=== PATIENT | male | born 1955 | race Caucasian/White ===

== ENCOUNTER 2016-03-23 15:44 | Emergency (ER) | payer OTHER ==
[2016-03-23 15:54] VITALS: BMI 29.5
[2016-03-23] MEDS ORDERED: HYDROmorphone HCL CARPU-JECT 1 MG/1 ML DISP.SYRIN IVPB ONE (17:28)
[2016-03-23] MEDS ORDERED: SODIUM CHLORIDE 1,000 ML IV STA (17:28)
[2016-03-23] MEDS ORDERED: HYDROmorphone HCL CARPU-JECT 1 MG/1 ML DISP.SYRIN ONE (17:36)
[2016-03-23 18:05] LABS: BASOPHIL 1.3 % (0-2.0); EOSINOPHIL 0.7 % (0-4.5); MCH 27.6 pg (25.7-33.7); MCHC 32.6 g/dl (32.0-35.9); MEAN CELL VOLUME 84.7 fl (80-96); MEAN PLT VOLUME 9.7 fl (7.5-11.1); PLATELET COUNT 228 K/MM3 (134-434); RDW 14.5 % (11.9-15.9); WHITE BLOOD COUNT 12.6 K/mm3 (4.0-10.0)
[2016-03-23 18:32] LABS: ALBUMIN 4.3 g/dl (3.4-5.0); BILIRUBIN,TOTAL 0.4 mg/dL (0.2-1.0); CALCIUM 8.9 mg/dL (8.5-10.1); CREATININE 1.4 mg/dL (0.7-1.3)
[2016-03-23 18:34] LABS: TOT PROT 7.3 g/dl (6.4-8.2)
--- NOTE | 2016-03-23 18:55 | PDOC ---
History of Present Illness - General History Source: Patient Exam Limitations: No Limitations - History of Present Illness Initial Comments: 03/23/16 18:55 The patient is a 60 year old male, with a significant past medical history of asthma, HTN, and borderline diabetes, who presents to the emergency department with right flank pain. He ranks his pain a 10/10 in pain intensity. He describes the pain as a sharp constant sensation. He also notes his urine often alternates from a brownish and yellow color. He notes having pain whenever he moves or exerts any energy. He notes having nausea and vomiting as well along with frequent dysuria. He denies fever, chills, headache and dizziness. He denies diarrhea and constipation. Allergies: Penicillins Past surgical history: TKR Social History: Nonsmoker. PCP: <Alex Altamirano - Last Filed: 03/23/16 18:55> <Mila Jimenez - Last Filed: 03/23/16 20:47> - General History Source: Patient Exam Limitations: No Limitations <Ailyn Jon - Last Filed: 03/24/16 17:54> - General Chief Complaint: Pain Stated Complaint: flank pain Time Seen by Provider: 03/23/16 17:28 Past History <Alex Altamirano - Last Filed: 03/23/16 18:55> <Mila Jimenez - Last Filed: 03/23/16 20:47> - Past Medical History Anemia: No Asthma: Yes Cancer: No Cardiac Disorders: Yes (SYSTOLIC VALVE LEAKAGE) CVA: No COPD: No CHF: No Dementia: No Diabetes: No GI Disorders: No Disorders: No HTN: Yes Hypercholesterolemia: Yes Liver Disease: No Seizures: No Thyroid Disease: No - Psycho/Social/Smoking Cessation Hx Anxiety: No Suicidal Ideation: No Smoking History: Never smoked Have you smoked in the past 12 months: No If you are a former smoker, when did you quit?: 1979 Information on smoking cessation initiated: No Hx Alcohol Use: No Drug/Substance Use Hx: No Substance Use Type: Alcohol Hx Substance Use Treatment: Yes (1997) <Ailyn Jon - Last Filed: 03/24/16 17:54> - Past Medical History Allergies/Adverse Reactions: Allergies Allergy/AdvReac Type Severity Reaction Status Date / Time Penicillins Allergy Rash Verified 03/23/16 15:49 Home Medications: Ambulatory Orders Ibuprofen [Motrin -] 600 mg PO TID #30 tablet 03/23/16 Tamsulosin HCl [Flomax] 0.4 mg PO DAILY #14 capsule 03/23/16 Review of Systems - Review of Systems Able to Perform ROS?: Yes Comments:: 03/23/16 18:55 GENERAL/CONSTITUTIONAL: No: fever, chills, weakness, loss of appetite. HEAD, EYES, EARS, NOSE AND THROAT: No: change in vision, ear pain, discharge, sore throat, throat swelling. CARDIOVASCULAR: No: chest pain, lightheadedness, palpitations, syncope RESPIRATORY: No: cough, shortness of breath, wheezing, hemoptysis, stridor. GASTROINTESTINAL: Yes : nausea, vomiting No: diarrhea, abdominal cramping, rectal bleeding, constipation. GENITOURINARY: Yes flank pain and dysuria. No: hematuria, frequency, urgency, MUSCULOSKELETAL: No: back pain, neck pain, joint pain, muscle swelling or pain SKIN : No: lesions, pallor, rash or easy bruising. NEUROLOGIC: No: headache, vertigo, paresthesias, weakness ENDOCRINE: No: unexplained weight gain or loss HEMATOLOGIC/LYMPHATIC: No: anemia, easy bleeding, swelling nodes. <Alex Altamirano - Last Filed: 03/23/16 18:55> *Physical Exam - Vital Signs Last Vital Signs Temp Pulse Resp BP Pulse Ox 98.2 F 80 18 156/78 100 03/23/16 15:49 03/23/16 15:49 03/23/16 15:49 03/23/16 15:49 03/23/16 15:49 - Physical Exam Comments: 03/23/16 18:56 GENERAL: The patient is in no acute distress. HEAD: Normal with no signs of trauma. EYES: PERRLA, EOMI, sclera anicteric, conjunctiva clear. ENT: Ears normal, nares patent, oropharynx clear without exudates. Moist mucous membranes. NECK: Normal range of motion, supple without lymphadenopathy, JVD, or masses. LUNGS: Breath sounds equal, clear to auscultation bilaterally. No wheezes, and no crackles. HEART: Regular rate and rhythm, normal S1 and S2 without murmur, rub or gallop. ABDOMEN: Mild RLQ tenderness. Soft, normoactive bowel sounds. No guarding, no rebound. No masses palpable. EXTREMITIES: Normal range of motion, no edema. No clubbing or cyanosis. No erythema, or tenderness. NEUROLOGICAL: Cranial nerves II through XII grossly intact. Normal speech. No focal neurological deficits. MUSCULOSKELETAL: Back non-tender to palpation, mild right CVA tenderness SKIN: Warm, Dry, normal turgor, no rashes or lesions noted. <Alex Altamirano - Last Filed: 03/23/16 18:55> - Vital Signs Last Vital Signs Temp Pulse Resp BP Pulse Ox 98.2 F 80 18 156/78 100 03/23/16 15:49 03/23/16 15:49 03/23/16 15:49 03/23/16 15:49 03/23/16 15:49 <Mila Jimenez - Last Filed: 03/23/16 20:47> - Vital Signs Last Vital Signs Temp Pulse Resp BP Pulse Ox 98.2 F 80 18 156/78 100 03/23/16 15:49 03/23/16 15:49 03/23/16 15:49 03/23/16 15:49 03/23/16 15:49 <Ailyn Jon - Last Filed: 03/24/16 17:54> ED Treatment Course - LABORATORY CBC & Chemistry Diagram: 03/23/16 17:45 03/23/16 17:45 - ADDITIONAL ORDERS Additional order review: Laboratory Results 03/23/16 17:45 Sodium 143 Potassium 3.9 Chloride 103 Carbon Dioxide 30 Anion Gap 10 BUN 18 D Creatinine 1.4 H D Creat Clearance w eGFR 51.69 Random Glucose 119 H D Calcium 8.9 Total Bilirubin 0.4 AST 17 ALT 17 D Alkaline Phosphatase 97 Total Protein 7.3 Albumin 4.3 03/23/16 17:45 RBC 5.48 MCV 84.7 MCHC 32.6 RDW 14.5 MPV 9.7 Neutrophils % 90.0 H Lymphocytes % 5.2 L D Monocytes % 2.8 L Eosinophils % 0.7 Basophils % 1.3 - Medications Given in the ED: ED Medications Discontinued Medications Generic Name Dose Route Start Last Admin Trade Name Freq PRN Reason Stop Dose Admin Hydromorphone HCl 0.5 mg 03/23/16 17:28 03/23/16 17:59 Dilaudid Injection - IVPB 03/23/16 17:29 0.5 mg NOW ONE Administration <Alex Altamirano - Last Filed: 03/23/16 18:55> - LABORATORY CBC & Chemistry Diagram: 03/23/16 17:45 03/23/16 17:45 - ADDITIONAL ORDERS Additional order review: Laboratory Results 03/23/16 03/23/16 17:45 17:33 Sodium 143 Potassium 3.9 Chloride 103 Carbon Dioxide 30 Anion Gap 10 BUN 18 D Creatinine 1.4 H D Creat Clearance w eGFR 51.69 Random Glucose 119 H D Calcium 8.9 Total Bilirubin 0.4 AST 17 ALT 17 D Alkaline Phosphatase 97 Total Protein 7.3 Albumin 4.3 Urine Color Red Urine Appearance Cloudy Urine pH 5.0 Ur Specific [place] 1.021 Urine Protein 2+ H D Urine Glucose (UA) Negative Urine Ketones Negative Urine Blood 3+ H Urine Nitrite Positive Urine Bilirubin Negative Urine Urobilinogen 4.0 e.u/dl Ur Leukocyte Esterase Negative Urine RBC 7744 Urine WBC 179 Urine Mucus Moderate 03/23/16 17:45 RBC 5.48 MCV 84.7 MCHC 32.6 RDW 14.5 MPV 9.7 Neutrophils % 90.0 H Lymphocytes % 5.2 L D Monocytes % 2.8 L Eosinophils % 0.7 Basophils % 1.3 - Medications Given in the ED: ED Medications Discontinued Medications Generic Name Dose Route Start Last Admin Trade Name Curtq PRN Reason Stop Dose Admin Hydromorphone HCl 0.5 mg 03/23/16 17:28 03/23/16 17:59 Dilaudid Injection - IVPB 03/23/16 17:29 0.5 mg NOW ONE Administration Ketorolac Tromethamine 30 mg 03/23/16 19:23 03/23/16 19:40 Toradol Injection - IVPUSH 03/23/16 19:24 30 mg ONCE ONE Administration Sodium Chloride 500 ml 03/23/16 19:26 03/23/16 19:40 Normal Saline - IV 03/23/16 19:27 500 ml ONCE ONE Administration Tamsulosin HCl 0.4 mg 03/23/16 19:23 03/23/16 19:40 Flomax - PO 03/23/16 19:24 0.4 mg ONCE ONE Administration <Mila Jimenez - Last Filed: 03/23/16 20:47> - LABORATORY CBC & Chemistry Diagram: 03/23/16 17:45 03/23/16 17:45 - ADDITIONAL ORDERS Additional order review: Laboratory Results 03/23/16 17:45 Sodium 143 Potassium 3.9 Chloride 103 Carbon Dioxide 30 Anion Gap 10 BUN 18 D Creatinine 1.4 H D Creat Clearance w eGFR 51.69 Random Glucose 119 H D Calcium 8.9 Total Bilirubin 0.4 AST 17 ALT 17 D Alkaline Phosphatase 97 Total Protein 7.3 Albumin 4.3 03/23/16 17:45 RBC 5.48 MCV 84.7 MCHC 32.6 RDW 14.5 MPV 9.7 Neutrophils % 90.0 H Lymphocytes % 5.2 L D Monocytes % 2.8 L Eosinophils % 0.7 Basophils % 1.3 - RADIOLOGY Radiology Studies Ordered: Category Date Time Status SPIRAL- RENAL-STONE CT [CT] Stat CT Scan 03/23/16 17:28 Taken - Medications Given in the ED: ED Medications Discontinued Medications Generic Name Dose Route Start Last Admin Trade Name Freq PRN Reason Stop Dose Admin Hydromorphone HCl 0.5 mg 03/23/16 17:28 03/23/16 17:59 Dilaudid Injection - IVPB 03/23/16 17:29 0.5 mg NOW ONE Administration <Ailyn Jon - Last Filed: 03/24/16 17:54> Medical Decision Making - Medical Decision Making 03/23/16 20:47 I received patient on signout. He has right side pain. Improved with toradol and flomax that I gave him. CT reveals a 2.5mm stone at the right mid-ureter. Mild hydronephrosis. Cr is 1.4 up from 1.0 in the past. Pt was hydrated with 1.5L saline and he will be sent home with instructions to return for worsening abd/flank pain or fever or dysuria. Pt will be teated at home with NSAIDS and flomax. Pt will go home with his . <Mila Jimenez - Last Filed: 03/23/16 20:47> - Medical Decision Making 03/23/16 18:55 A portion of this note was documented by scribe services under my direction. I have reviewed the details of the note, within reason, and agree with the documentation with the following case summary and management plan written by me. Nursing documentation reviewed and incorporated into medical decision making 60 yo M presenting to the ER s/p complaint of right flank and right sided abdominal pain No fevers or chills Dark urine symptoms began at 11am No prior episodes like this No trauma Symptoms consistent with kidney stone Unknown renal function Will give dilaudid for pain, IV fluids Will check labs and UA Pt pending CT and labs signed out to Dr Jimenez <Ailyn Jon - Last Filed: 03/24/16 17:54> *DC/Admit/Observation/Transfer - Attestations Scribe Attestion: 03/23/16 18:56 Documentation prepared by Alex Altamirano, acting as medical donation professional for Ailyn Jon MD. <Alex Altamirano - Last Filed: 03/23/16 18:55> - Discharge Dispostion Admit: No <Mila Jimenez - Last Filed: 03/23/16 20:47> <Ailyn Jon - Last Filed: 03/24/16 17:54> Diagnosis at time of Disposition: Ureteral stone, Hydronephrosis - Discharge Dispostion Disposition: HOME Condition at time of disposition: Stable - Prescriptions Prescriptions: Tamsulosin HCl [Flomax] 0.4 mg PO DAILY #14 capsule Ibuprofen [Motrin -] 600 mg PO TID #30 tablet - Referrals Referrals: Simone Kauffman MD [Primary Care Provider] - Emilio Arredondo MD [Staff Physician] - - Patient Instructions Printed Discharge Instructions: Kidney Stones -- Adult, DI for Extracorporeal Shock Wave Lithotripsy
[2016-03-23 19:03] LABS: URINE APPEARANCE CLOUDY; URINE BILIRUBIN NEGATIVE (NEGATIVE); URINE COLOR RED; URINE GLUCOSE (UA) NEGATIVE (NEGATIVE); URINE KETONE NEGATIVE (NEGATIVE); URINE LEUK ESTERASE NEGATIVE (NEGATIVE); URINE NITRITE POSITIVE (NEGATIVE); URINE UROBILINOGEN 4.0 E.U/dl E.U./dl (0.2-1.0)
[2016-03-23] MEDS ORDERED: KETOROLAC TROMETHAMINE 30 MG/1 ML VIAL IVPUSH ONE (19:23)
[2016-03-23] MEDS ORDERED: TAMSULOSIN HCL 0.4 MG CAP.ER.24H (FP) PO ONE (19:23)
[2016-03-23] MEDS ORDERED: SODIUM CHLORIDE 0.9% 500 ML INFUS.BAG IV ONE (19:26)
[2016-03-23] MEDS ORDERED: TAMSULOSIN HCL 0.4 MG CAP.ER.24H (FP) ONE (19:28)
[2016-03-23] MEDS ORDERED: KETOROLAC TROMETHAMINE 30 MG/1 ML VIAL ONE (19:28)
[2016-03-23 19:29] LABS: URINE BLOOD 3+ (NEGATIVE); URINE PROTEIN 2+ (NEGATIVE)
[2016-03-23 19:36] LABS: URINE MUCUS MODERATE; URINE RBC 7744 /hpf (0-3); URINE WBC 179 /hpf (3-5)
[2016-03-23] MEDS ORDERED: OXYCODONE/APAP 5/325MG COMBO TABLET PO ONE (20:43)
[2016-03-23] MEDS ORDERED: OXYCODONE/APAP 5/325MG COMBO TABLET ONE (20:54)
[2016-03-23 21:04] VITALS: BP 138/78; PULSE 72; TEMP 98.4
== END 2016-03-23 21:04 | disposition home or self-care (01) ==
LOC: JER 15:44
PROC: 3E033NZ Introduction of Analgesics, Hypnotics, Sedatives into Peripheral Vein, Percutaneous Approach (ICD-10-PCS; principal; 2016-03-23)
PROC: 3E0333Z Introduction of Anti-inflammatory into Peripheral Vein, Percutaneous Approach (ICD-10-PCS; 2016-03-23)
PROC: 3E0337Z Introduction of Electrolytic and Water Balance Substance into Peripheral Vein, Percutaneous Approach (ICD-10-PCS; 2016-03-23)
DX: N13.2 Hydronephrosis with renal and ureteral calculous obstruction (principal)
CPT/HCPCS: 36415; 74176; 80053; 81003; 81015; 85025; 87086; 96361; 96374; 96375; 99284-25

== ENCOUNTER 2016-03-30 19:46 | Inpatient (IN) | payer OTHER ==
--- NOTE | 2016-03-30 20:39 | PDOC ---
History of Present Illness - General History Source: Patient Exam Limitations: No Limitations - History of Present Illness Initial Comments: 03/30/16 21:24 The patient is a 60 year old male with a significant past medical history of asthma, hypertension, and borderline diabetes, presenting to the Emergency Department with lower right sided pain, and urinary retention. He reports that he was seen in the ER on 03/23 for similar symptoms and diagnosed with a 2.5mm kidney stone. He describes the pain as at this lower right side, radiating to his lower right back. He admits that his urine was yellow earlier in the week but that it is now brown in color, and admits to urinary retention, and dysuria. He denies hematuria. He admits that he was been drinking adequate amounts of fluids. He also reports a subjective fever. He denies a history of kidney stones prior to this kidney stone. The patient denies nausea, vomiting, and diarrhea. Patient denies chills, or cough. Patient denies upper abdominal pain, or chest pain. <Jaja Valentine - Last Filed: 03/30/16 23:27> <Mila Jimenez - Last Filed: 04/01/16 01:21> - General Chief Complaint: Pain, Acute Stated Complaint: KIDNEY STONES Time Seen by Provider: 03/30/16 20:38 Past History <Jaja Valentine - Last Filed: 03/30/16 23:27> - Past Medical History Anemia: No Asthma: Yes Cancer: No Cardiac Disorders: Yes (SYSTOLIC VALVE LEAKAGE) CVA: No COPD: No CHF: No Dementia: No Diabetes: No GI Disorders: No Disorders: No HTN: Yes Hypercholesterolemia: Yes Liver Disease: No Seizures: No Thyroid Disease: No - Psycho/Social/Smoking Cessation Hx Anxiety: No Suicidal Ideation: No Smoking History: Never smoked Have you smoked in the past 12 months: No If you are a former smoker, when did you quit?: 1979 Information on smoking cessation initiated: No Hx Alcohol Use: No Drug/Substance Use Hx: No Substance Use Type: Alcohol Hx Substance Use Treatment: Yes (1997) <Mila Jimenez - Last Filed: 04/01/16 01:21> - Past Medical History Allergies/Adverse Reactions: Allergies Allergy/AdvReac Type Severity Reaction Status Date / Time Penicillins Allergy Rash Verified 03/30/16 20:00 Home Medications: Ambulatory Orders Ibuprofen [Motrin -] 600 mg PO TID #30 tablet 03/23/16 Tamsulosin HCl [Flomax] 0.4 mg PO DAILY #14 capsule 03/23/16 Review of Systems - Review of Systems Able to Perform ROS?: Yes Comments:: 03/30/16 21:24 GENERAL/CONSTITUTIONAL: No fever or chills. No weakness. HEAD, EYES, EARS, NOSE AND THROAT: No change in vision. No ear pain or discharge. No sore throat. CARDIOVASCULAR: No chest pain or shortness of breath. RESPIRATORY: No cough, wheezing, or hemoptysis. GASTROINTESTINAL: No nausea, vomiting, diarrhea or constipation. GENITOURINARY: + brown urine, + dysuria, + urinary retention, + right sided pain radiating to right back. No hematuria, or frequency. MUSCULOSKELETAL: No joint or muscle swelling or pain. No neck or back pain. SKIN: No rash NEUROLOGIC: No headache, vertigo, loss of consciousness, or change in strength/ sensation. ENDOCRINE: No increased thirst. No abnormal weight change. HEMATOLOGIC/LYMPHATIC: No anemia, easy bleeding, or history of blood clots. ALLERGIC/IMMUNOLOGIC: No hives or skin allergy. <Jaja Valentine - Last Filed: 03/30/16 23:27> *Physical Exam - Vital Signs Last Vital Signs Temp Pulse Resp BP Pulse Ox 98 F 86 20 146/84 96 03/30/16 20:00 03/30/16 20:00 03/30/16 20:00 03/30/16 20:00 03/30/16 20:00 - Physical Exam Comments: 03/30/16 21:27 GENERAL: Awake, alert, and fully oriented, in no acute distress HEAD: No signs of trauma EYES: PERRLA, EOMI, sclera anicteric, conjunctiva clear ENT: Auricles normal inspection, hearing grossly normal, nares patent, oropharynx clear without exudates. Moist mucosa NECK: Normal ROM, supple, no lymphadenopathy, JVD, or masses LUNGS: Breath sounds equal, clear to auscultation bilaterally. No wheezes, and no crackles HEART: Regular rate and rhythm, normal S1 and S2, no murmurs, rubs or gallops ABDOMEN: Tenderness with percussion to right side and right flank. Soft, normoactive bowel sounds. No guarding, no rebound. No masses EXTREMITIES: Normal range of motion, no edema. No clubbing or cyanosis. No cords, erythema, or tenderness NEUROLOGICAL: Cranial nerves II through XII grossly intact. Normal speech, normal gait SKIN: Warm, Dry, normal turgor, no rashes or lesions noted. <Jaja Valentine - Last Filed: 03/30/16 23:27> - Vital Signs Last Vital Signs Temp Pulse Resp BP Pulse Ox 98 F 86 20 146/84 96 03/30/16 20:00 03/30/16 20:00 03/30/16 20:00 03/30/16 20:00 03/30/16 20:00 <Mila Jimenez - Last Filed: 04/01/16 01:21> ED Treatment Course - LABORATORY CBC & Chemistry Diagram: 03/30/16 20:51 03/30/16 20:51 - ADDITIONAL ORDERS Additional order review: 03/30/16 23:18 CT As reviewed by Dr. Tera Crowley IMPRESSION: Migration of 2.5mm right ureteral calculus now just proximal to the UVJ. Mild right-sided hydronephrosis has slightly worsened since 03/23/2016. - Medications Given in the ED: ED Medications Discontinued Medications Generic Name Dose Route Start Last Admin Trade Name Freq PRN Reason Stop Dose Admin Ketorolac Tromethamine 30 mg 03/30/16 20:44 03/30/16 21:02 Toradol Injection - IVPUSH 03/30/16 20:45 30 mg ONCE ONE Administration Sodium Chloride 1,000 ml 03/30/16 20:42 03/30/16 21:03 Normal Saline - IV 03/30/16 20:43 1,000 ml ONCE ONE Administration <Jaja Valentine - Last Filed: 03/30/16 23:27> - LABORATORY CBC & Chemistry Diagram: 03/30/16 20:51 03/30/16 20:51 <Mila Jimenez - Last Filed: 04/01/16 01:21> Medical Decision Making - Medical Decision Making 03/30/16 23:27 Dr. Kauffman was called at his office. Dr. Pulliam returned the call at 11:[address] Jimenez about the patient's care. <Jaja Valentine - Last Filed: 03/30/16 23:27> - Medical Decision Making 04/01/16 01:15 Pt comes with kidney stone pain. Stone moved a bit from his side to his lower side, as per patient's description. This is what we see on CT scan. Last time pt was here, he had nitrite + urine, but no leukocytes. Pt was not treated with abx. My worry today is that he in fact had a infection. So we started levaquin after sending off UA and urine culture. We will admit the patient, as he is dribbling urine and he has renal colic and essentially an obstructed stone, though it is only 2.5mm. Pt has mild hydronephrosis. His BUN and Cr are still mildly elevated. He is afebrile. <Mila Jimenez - Last Filed: 04/01/16 01:21> *DC/Admit/Observation/Transfer - Attestations Scribe Attestion: 03/30/16 21:26 Documentation prepared by Jaja Valentine, acting as medical record librarian for Mila Jimenez MD. <Jaja Valentine - Last Filed: 03/30/16 23:27> - Discharge Dispostion Admit: Yes <Mila Jimenez - Last Filed: 04/01/16 01:21> Diagnosis at time of Disposition: Hydronephrosis with renal and ureteral calculous obstruction, Dribbling of urine, Renal colic on right side - Referrals
[2016-03-30] MEDS ORDERED: SODIUM CHLORIDE 0.9% 500 ML INFUS.BAG IV ONE (20:42)
[2016-03-30] MEDS ORDERED: LEVOFLOXACIN 750 MG IVPB 150 ML IVPB ONE ×2 (20:42→20:55)
[2016-03-30] MEDS ORDERED: KETOROLAC TROMETHAMINE 30 MG/1 ML VIAL IVPUSH ONE (20:44)
[2016-03-30] MEDS ORDERED: KETOROLAC TROMETHAMINE 30 MG/1 ML VIAL ONE (20:55)
[2016-03-30 21:38] LABS: BASOPHIL 1.2 % (0-2.0); EOSINOPHIL 5.7 % (0-4.5); MCH 27.8 pg (25.7-33.7); MCHC 32.7 g/dl (32.0-35.9); MEAN CELL VOLUME 84.8 fl (80-96); NEUTROPHILS 66.1 % (42.8-82.8); PLATELET COUNT 241 K/MM3 (134-434); RDW 14.5 % (11.9-15.9); WHITE BLOOD COUNT 9.9 K/mm3 (4.0-10.0)
[2016-03-30 21:42] LABS: URINE APPEARANCE CLEAR; URINE BILIRUBIN NEGATIVE (NEGATIVE); URINE COLOR YELLOW; URINE GLUCOSE (UA) NEGATIVE (NEGATIVE); URINE KETONE NEGATIVE (NEGATIVE); URINE NITRITE NEGATIVE (NEGATIVE); URINE PROTEIN NEGATIVE (NEGATIVE); URINE UROBILINOGEN NEGATIVE E.U./dl (0.2-1.0)
[2016-03-30 21:49] LABS: URINE BLOOD 3+ (NEGATIVE); URINE LEUK ESTERASE 1+ (NEGATIVE)
[2016-03-30] MEDS ORDERED: HYDROmorphone HCL CARPU-JECT 2 MG/1 ML DISP.SYRIN IVPUSH ONE (21:57)
[2016-03-30] MEDS ORDERED: HYDROmorphone HCL CARPU-JECT 2 MG/1 ML DISP.SYRIN ONE (21:57)
[2016-03-30] MEDS ORDERED: ONDANSETRON 4 MG/2 ML VIAL ONE (21:57)
[2016-03-30 22:01] LABS: URINE MUCUS RARE; URINE RBC 540 /hpf (0-3); URINE WBC 13 /hpf (3-5)
[2016-03-30] MEDS ORDERED: ONDANSETRON 4 MG/2 ML VIAL IVPUSH ONE (22:02)
[2016-03-30 22:04] LABS: BILIRUBIN,TOTAL 0.3 mg/dL (0.2-1.0); CALCIUM 8.7 mg/dL (8.5-10.1); CREATININE 1.3 mg/dL (0.7-1.3); TOT PROT 6.7 g/dl (6.4-8.2)
[2016-03-30] MEDS ORDERED: TAMSULOSIN HCL 0.4 MG CAP.ER.24H (FP) PO ONE (23:18)
[2016-03-30] MEDS ORDERED: TAMSULOSIN HCL 0.4 MG CAP.ER.24H (FP) ONE (23:21)
[2016-03-31] MEDS ORDERED: ONDANSETRON 4 MG/2 ML VIAL IVPB ONE (00:35)
[2016-03-31] MEDS ORDERED: ONDANSETRON 4 MG/2 ML VIAL ONE (00:35)
[2016-03-31] MEDS ORDERED: morphine CARPU-JECT 2 MG/1 ML DISP.SYRIN IVPUSH PRN (01:18)
[2016-03-31] MEDS ORDERED: ONDANSETRON 4 MG/2 ML VIAL IVPB PRN (01:18)
[2016-03-31 02:35] VITALS: BMI 38.7
[2016-03-31] MEDS: DEXTROSE 5%-0.45% SALINE 1,000 ML IV SCH ×3 (02:43→18:06)
[2016-03-31] MEDS: TAMSULOSIN HCL 0.4 MG CAP.ER.24H (FP) PO SCH (09:22)
--- NOTE | 2016-03-31 12:16 | CON.GU ---
Consult - History of Present Illness History of Present Illness: 60 yo male with 1 week h/o right renal colic who initially presented to ER and then has returned for contiued colic. CT shows migration of a 2.5mm stone to right distal ureter. No prior h/o nephrolithiasis. No fever/chills - Alcohol/Substance Use Hx Alcohol Use: No - Smoking History Smoking history: Never smoked Have you smoked in the past 12 months: No If you are a former smoker, when did you quit?: 1979 Home Medications - Allergies Allergies/Adverse Reactions: Allergies Allergy/AdvReac Type Severity Reaction Status Date / Time Penicillins Allergy Rash Verified 03/30/16 20:00 - Home Medications Home Medications: Ambulatory Orders Ibuprofen [Motrin -] 600 mg PO TID #30 tablet 03/23/16 Tamsulosin HCl [Flomax] 0.4 mg PO DAILY #14 capsule 03/23/16 Physical Exam- Vital Signs: Vital Signs Temperature 97.8 F 03/31/16 09:14 Pulse Rate 65 03/31/16 09:14 Respiratory Rate 20 03/31/16 09:14 Blood Pressure 118/73 03/31/16 09:14 O2 Sat by Pulse Oximetry (%) 98 03/31/16 01:58 Cardiovascular: Yes: Regular Rate and Rhythm Respiratory: Yes: Regular Gastrointestinal: Yes: Normal Bowel Sounds, Soft Imaging - Results Cat Scan: Report Reviewed Problem List - Problems (1) Ureteral stone Assessment/Plan: in light of small stone size, recommend conservative management with IVF hydration/analgesics/flomax Code(s): N20.1 - CALCULUS OF URETER
--- NOTE | 2016-03-31 12:42 | HP ---
Admitting History and Physical - Admission Chief Complaint: flank/pelvic pain History of Present Illness: 60 yo M, presnets with 1 week history of pain in right flank and groin. Was in ED 1 week ago and diagnosed with renal colic at that time. Was started on Flomax and ibuprofen as stone 2.5 mm and felt it would pass. However, pain picked up so went to ED last night, also noting that urine seemed to be "dribbling out" and not steady flow. On repeat CT scan, stone had migrated slightly, but still with hydronephrosis (slightly worsened). No feves. UA not showing UTI. Pain this morning slightly improved form yesterday History Source: Patient, Medical Record Limitations to Obtaining History: No Limitations - Past Medical History Cardiovascular: Yes: HTN Pulmonary: Yes: Asthma Renal/: Yes: Renal Calculi - Smoking History Smoking history: Never smoked Have you smoked in the past 12 months: No If you are a former smoker, when did you quit?: 1979 - Alcohol/Substance Use Hx Alcohol Use: No - Social History Occupation: business affairs manager Other Social History: , 6 children Home Medications - Allergies Allergies/Adverse Reactions: Allergies Allergy/AdvReac Type Severity Reaction Status Date / Time Penicillins Allergy Rash Verified 03/30/16 20:00 - Home Medications Home Medications: Ambulatory Orders Ibuprofen [Motrin -] 600 mg PO TID #30 tablet 03/23/16 Tamsulosin HCl [Flomax] 0.4 mg PO DAILY #14 capsule 03/23/16 Family Disease History - Family Disease History Family Disease History: Other: Mother (alzheimers dementia), Brother ( alzheimers dementia) Review of Systems - Review of Systems Constitutional: denies: Chills, Fever Eyes: reports: No Symptoms HENT: denies: Difficult Swallowing, Ear Pain, Throat Pain Neck: denies: Pain on Movement, Tenderness Cardiovascular: denies: Chest Pain, Palpitations Respiratory: denies: Cough, SOB Physical Examination Vital Signs: Vital Signs Temperature 97.8 F 03/31/16 09:14 Pulse Rate 65 03/31/16 09:14 Respiratory Rate 20 03/31/16 09:14 Blood Pressure 118/73 03/31/16 09:14 O2 Sat by Pulse Oximetry (%) 98 03/31/16 01:58 Constitutional: Yes: Well Nourished, No Distress, Calm Eyes: Yes: Conjunctiva Clear, EOM Intact HENT: Yes: Atraumatic, Normocephalic Neck: Yes: Supple, Trachea Midline Cardiovascular: Yes: Regular Rate and Rhythm, S1, S2. No: Murmur Respiratory: Yes: Regular, CTA Bilaterally. No: Rales, Rhonchi, Wheezes Gastrointestinal: Yes: Normal Bowel Sounds, Soft, Tenderness (right lower quadrant). No: Distention Renal/: Yes: CVA Tenderness - Right Edema: No Neurological: Yes: Alert, Oriented Labs: Laboratory Tests 03/30/16 03/30/16 03/30/16 20:51 20:51 21:30 WBC 9.9 RBC 5.16 Hgb 14.3 Hct 43.8 MCV 84.8 MCHC 32.7 RDW 14.5 Plt Count 241 MPV 10.0 Neutrophils % 66.1 D Lymphocytes % 16.5 D Monocytes % 10.5 H D Eosinophils % 5.7 H D Basophils % 1.2 Sodium 140 Potassium 4.0 Chloride 102 Carbon Dioxide 30 Anion Gap 8 BUN 23 H D Creatinine 1.3 Creat Clearance w eGFR 56.31 Random Glucose 131 H Calcium 8.7 Total Bilirubin 0.3 D AST 18 ALT 20 Alkaline Phosphatase 109 Total Protein 6.7 Albumin 4.0 Urine Color Yellow Urine Appearance Clear Urine pH 6.0 Ur Specific [place] 1.023 Urine Protein Negative Urine Glucose (UA) Negative Urine Ketones Negative Urine Blood 3+ H Urine Nitrite Negative Urine Bilirubin Negative Urine Urobilinogen Negative Ur Leukocyte Esterase 1+ H Urine RBC 540 Urine WBC 13 Urine Mucus Rare Imaging - Results Cat Scan: Report Reviewed (Right 2.5mm stone near UVJ with right hydronephrosis) Problem List - Problems (1) Hydronephrosis with renal and ureteral calculous obstruction Assessment/Plan: -IVF, flomax, urology consult -hopefully stone passes without intervention Code(s): N13.2 - HYDRONEPHROSIS WITH RENAL AND URETERAL CALCULOUS OBSTRUCTION (2) Renal colic on right side Assessment/Plan: -pain control Code(s): N23 - UNSPECIFIED RENAL COLIC
[2016-04-01] MEDS: DEXTROSE 5%-0.45% SALINE 1,000 ML IV SCH ×2 (02:00→10:03)
[2016-04-01 08:29] LABS: CALCIUM 7.9 mg/dL (8.5-10.1); CREATININE 1.1 mg/dL (0.7-1.3)
[2016-04-01] MEDS: TAMSULOSIN HCL 0.4 MG CAP.ER.24H (FP) PO SCH (09:05)
[2016-04-01] MEDS ORDERED: amLODIPine BESYLATE 10 MG TABLET (FP) PO SCH (10:00)
--- NOTE | 2016-04-01 11:48 | PN ---
Progress Note, Physician History of Present Illness: Notes slight pressure in right lower quadrant, but no pain and has not taken any pain medication today or last night. - Current Medication List Current Medications: Active Medications Amlodipine Besylate (Norvasc -) 10 mg PO DAILY [facility] [place] Last Admin: 04/01/16 09:05 Dose: 10 mg Dextrose/Sodium Chloride (D5-1/2ns -) 1,000 mls @ 125 mls/hr IV ASDIR [facility] [place] Last Admin: 04/01/16 10:03 Dose: 125 mls/hr Morphine Sulfate (Morphine Injection -) 2 mg IVPUSH Q4H PRN PRN Reason: PAIN Ondansetron HCl (Zofran Injection) 4 mg IVPB Q6H PRN PRN Reason: NAUSEA Tamsulosin HCl (Flomax -) 0.4 mg PO DAILY@0830 [facility] [place] Last Admin: 04/01/16 09:05 Dose: 0.4 mg - Objective Vital Signs: Vital Signs Temperature 98.3 F 04/01/16 08:45 Pulse Rate 79 04/01/16 08:45 Respiratory Rate 20 04/01/16 08:45 Blood Pressure 139/85 04/01/16 08:45 O2 Sat by Pulse Oximetry (%) 96 03/31/16 21:00 Constitutional: Yes: No Distress, Calm Cardiovascular: Yes: Regular Rate and Rhythm, S1, S2. No: Murmur Respiratory: Yes: Regular, CTA Bilaterally, Other. No: Rales, Rhonchi, Wheezes Gastrointestinal: Yes: Normal Bowel Sounds, Soft, Abdomen, Obese. No: Tenderness Edema: No Labs: CBC, BMP 04/01/16 06:00 Problem List - Problems (1) Hydronephrosis with renal and ureteral calculous obstruction Code(s): N13.2 - HYDRONEPHROSIS WITH RENAL AND URETERAL CALCULOUS OBSTRUCTION (2) Renal colic on right side Code(s): N23 - UNSPECIFIED RENAL COLIC Assessment/Plan Current Active Problems Hydronephrosis with renal and ureteral calculous obstruction (Acute) Renal colic on right side (Acute) HTN Asthma -for KUB xray today -possbile d/c home if cont to be pain free (to then f/u with urology)
--- NOTE | 2016-04-01 18:37 | DS ---
Physical Examination Vital Signs: Vital Signs Temperature 98.2 F 04/01/16 15:12 Pulse Rate 79 04/01/16 15:12 Respiratory Rate 20 04/01/16 08:45 Blood Pressure 124/56 04/01/16 15:12 O2 Sat by Pulse Oximetry (%) 96 04/01/16 09:00 Labs: CBC, BMP 04/01/16 06:00 Discharge Summary Reason For Visit: HYDRONEPHROSIS W/RENAL & URETER CALC OBS Current Active Problems Dribbling of urine (Acute) Hydronephrosis with renal and ureteral calculous obstruction (Acute) Renal colic on right side (Acute) Hospital Course: (see also note from earlier today) Continues to remain pain free -Renal stone not visible on KUB -yuly discharge home and can f/u with urology. - Instructions Referrals: Simone Kauffman MD [Primary Care Provider] - Disposition: HOME - Home Medications Comprehensive Discharge Medication List: Ambulatory Orders Ibuprofen [Motrin -] 600 mg PO TID #30 tablet 03/23/16 Tamsulosin HCl [Flomax -] 0.4 mg PO DAILY #14 capsule 03/23/16 Amlodipine Besylate [Norvasc -] 10 mg PO DAILY tablet 04/01/16
[2016-04-01 18:54] VITALS: BP 120/70; PULSE 80; TEMP 98.4
== END 2016-04-01 19:00 | disposition home or self-care (01) | DRG 465 ==
LOC: JER 19:46 → UNDOADMIN 23:30 → JERBED 23:30 → UNDOADMIN 23:47 → UNDOADMOB 03-31 01:18 → JERBED 03-31 01:18 → INTOOBSV 03-31 01:18 → J6S 03-31 02:09 → JERBED 03-31 02:09 → J6S 03-31 10:51 → OBSVTOIN 03-31 10:51 → JERBED 03-31 10:51 → INTOOBSV 03-31 10:51
PROVIDERS: ADMIT Specialist; ATTEND Specialist
DX: N13.2 Hydronephrosis with renal and ureteral calculous obstruction (principal); I10 Essential (primary) hypertension; J45.909 Unspecified asthma, uncomplicated
CPT/HCPCS: 36415; 74000-TC; 74176; 80048; 80053; 81003; 81015; 85025; 87086; 99285-25

== ENCOUNTER 2021-12-05 06:08 | Emergency (ER) | payer OTHER ==
[2021-12-05 06:15] VITALS: TEMP 97.9; BMI 32.5
[2021-12-05 07:50] LABS: HEMATOCRIT 40.7 % (35.4-49); HEMOGLOBIN 13.9 G/dL (11.7-16.9); MCH 29.3 pg (25.7-33.7); MEAN PLT VOLUME 10.3 fl (7.5-11.1); PLATELET COUNT 148.8 10^3/uL (134-434); RBC 4.73 10^6/uL (4.00-5.60); RDW 15.7 % (11.9-15.9); WHITE BLOOD COUNT 8.7 10^3/uL (4.0-10.8)
[2021-12-05 10:31] LABS: N-TERMINAL BNP 267.2 pg/ml (5-125)
[2021-12-05 10:46] LABS: CALCIUM 9.1 mg/dL (8.5-10.1)
[2021-12-05 10:47] LABS: BLOOD UREA NITROGEN 18.8 mg/dL (7-18)
[2021-12-05 10:49] VITALS: BP 136/90; PULSE 60; RESP 16
[2021-12-05 10:50] LABS: CREATININE 0.8 mg/dL (0.55-1.3)
[2021-12-05 10:52] LABS: BILIRUBIN,TOTAL 0.9 mg/dL (0.2-1); TOT PROT 6.5 g/dl (6.4-8.2)
== END 2021-12-05 11:02 | disposition home or self-care (01) ==
LOC: FER 06:08
DX: J45.909 Unspecified asthma, uncomplicated (principal)
CPT/HCPCS: 0241U-QW; 36415; 71045-TC-FY; 80053; 82550; 82553; 83880; 84484; 85027; 85379; 93005; 99285-25

== ENCOUNTER 2023-04-13 11:33 | Emergency (ER) | payer OTHER ==
[2023-04-13 12:09] VITALS: BP 139/81; PULSE 66; RESP 20; TEMP 98.3; BMI 35.4
[2023-04-13] MEDS ORDERED: ALBUTEROL SO4 2.5/IPRATROPIUM 0.5 INH SOL 3 ML VIAL.NEB. NEB ONE ×2 (12:59→14:18)
[2023-04-13] MEDS: ALBUTEROL SO4 2.5/IPRATROPIUM 0.5 INH SOL 3 ML VIAL.NEB. NEB ONE ×2 (13:01→14:21)
[2023-04-13 13:34] LABS: HEMOGLOBIN 15.6 GM/dL (11.7-16.9); MCHC 33.3 g/dl (32.0-35.9); MEAN CELL VOLUME 84.1 fl (80-96); MEAN PLT VOLUME 9.9 fl (7.5-11.1); PLATELET COUNT 123 10^3/uL (134-434); RBC 5.59 M/mm3 (4.00-5.60); RDW 15.3 % (11.9-15.9); WHITE BLOOD COUNT 8.6 K/mm3 (4.0-10.0)
[2023-04-13 13:59] LABS: POTASSIUM 3.5 mmol/L (3.5-5.1)
[2023-04-13 14:01] LABS: CALCIUM 8.7 mg/dL (8.5-10.1)
[2023-04-13 14:02] LABS: BLOOD UREA NITROGEN 12.7 mg/dL (7-18)
[2023-04-13 14:06] LABS: BILIRUBIN,TOTAL 0.7 mg/dL (0.2-1)
[2023-04-13 14:18] LABS: CREATININE 0.7 mg/dL (0.55-1.3)
== END 2023-04-13 16:27 | disposition home or self-care (01) ==
LOC: JER 11:33 → JERFT 11:33
PROC: 3E0F7GC Introduction of Other Therapeutic Substance into Respiratory Tract, Via Natural or Artificial Opening (ICD-10-PCS; principal; 2023-04-13)
PROC: 3E0F7GC Introduction of Other Therapeutic Substance into Respiratory Tract, Via Natural or Artificial Opening (ICD-10-PCS; 2023-04-13)
DX: J20.9 Acute bronchitis, unspecified (principal); R07.9 Chest pain, unspecified; R05.9 Cough, unspecified; R50.9 Fever, unspecified; R09.81 Nasal congestion; R06.02 Shortness of breath; R09.89 Other specified symptoms and signs involving the circulatory and respiratory systems; Z20.822 Contact with and (suspected) exposure to COVID-19
CPT/HCPCS: 0241U-QW; 36415; 71046-TC-FY; 80053; 84484; 85027; 93005; 93010; 99285-25

== ENCOUNTER 2023-07-11 13:35 | Observation (INO) | payer OTHER ==
[2023-07-11] MEDS ORDERED: ACETAMINOPHEN INJECTION 100 ML IVPB ONE (16:06)
[2023-07-11] MEDS: ACETAMINOPHEN 1000 MG/100 ML BAG IVPB ONE (16:06)
[2023-07-11 16:13] LABS: BASO % 1.1 % (0-2.0); EOS % 5.9 % (0-4.5); HEMATOCRIT 43.7 % (35.4-49); HEMOGLOBIN 14.5 GM/dL (11.7-16.9); LYMPH % 10.4 % (8-40); MCH 28.2 pg (25.7-33.7); MCHC 33.2 g/dl (32.0-35.9); MEAN CELL VOLUME 84.8 fl (80-96); MEAN PLT VOLUME 10.5 fl (7.5-11.1); MONO % 8.6 % (3.8-10.2); PLATELET COUNT 150 10^3/uL (134-434); RBC 5.15 M/mm3 (4.00-5.60); RDW 15.8 % (11.9-15.9); WHITE BLOOD COUNT 9.9 K/mm3 (4.0-10.0)
[2023-07-11 16:19] LABS: INR 1.05 (0.83-1.09); PROTHROMBIN TIME (PATIENT) 11.8 SEC (9.7-13.0)
[2023-07-11 16:22] LABS: ACTIVATED PTT 44.5 SECONDS (25.2-36.5)
[2023-07-11 16:35] LABS: POTASSIUM 3.4 mmol/L (3.5-5.1)
[2023-07-11] MEDS ORDERED: CLINDAMYCIN 600MG PREMIX IVPB 600 MG/50 ML BAG IVPB ONE (16:36)
[2023-07-11] MEDS: CLINDAMYCIN 600MG PREMIX IVPB 600 MG/50 ML BAG IVPB ONE (16:37)
[2023-07-11 16:38] LABS: ALBUMIN 4.2 g/dl (3.4-5.0); BLOOD UREA NITROGEN 19.4 mg/dL (7-18); CALCIUM 9.2 mg/dL (8.5-10.1)
[2023-07-11 16:43] LABS: BILIRUBIN,TOTAL 0.6 mg/dL (0.2-1); TOT PROT 7.1 g/dl (6.4-8.2)
[2023-07-11 16:45] LABS: N-TERMINAL BNP 253.4 pg/ml (5-125)
[2023-07-11 16:51] LABS: CREATININE 0.8 mg/dL (0.55-1.3)
[2023-07-11] MEDS ORDERED: ALBUTEROL SO4 HFA INHALER IH PRN (20:09)
[2023-07-11] MEDS ORDERED: POTASSIUM CHLORIDE ORAL LIQUID 20 MEQ/15 ML ONE (21:15)
[2023-07-11] MEDS ORDERED: ATORVASTATIN CA 10 MG TABLET (FP) ONE (21:15)
[2023-07-11] MEDS ORDERED: ASPIRIN 81 MG CHEWABLE TABLETS ONE (21:15)
[2023-07-11] MEDS: POTASSIUM CHLORIDE ORAL LIQUID 20 MEQ/15 ML PO ONE (21:28)
[2023-07-11] MEDS: ASPIRIN 81 MG CHEWABLE TABLETS PO SCH (21:28)
[2023-07-11] MEDS: ATORVASTATIN CA 10 MG TABLET (FP) PO SCH (21:29)
[2023-07-11] MEDS ORDERED: ACETAMINOPHEN 325 MG TABLET (FP) ONE (21:53)
[2023-07-11] MEDS: ACETAMINOPHEN 325 MG TABLET (FP) PO PRN (21:55)
[2023-07-11 22:42] LABS: MAGNESIUM 2.1 mg/dL (1.8-2.4)
[2023-07-11 23:33] VITALS: BMI 33.0
[2023-07-12] MEDS: CLINDAMYCIN 600MG PREMIX IVPB 600 MG/50 ML BAG IVPB SCH (00:38)
[2023-07-12 01:50] LABS: URINE APPEARANCE CLEAR; URINE BILIRUBIN NEGATIVE (NEGATIVE); URINE COLOR YELLOW; URINE GLUCOSE (UA) NEGATIVE (NEGATIVE); URINE KETONE NEGATIVE (NEGATIVE); URINE LEUK ESTERASE NEGATIVE (NEGATIVE); URINE NITRITE NEGATIVE (NEGATIVE); URINE PROTEIN NEGATIVE (NEGATIVE); URINE UROBILINOGEN 0.2 mg/dL (0.2-1.0)
[2023-07-12 07:38] LABS: POTASSIUM 3.3 mmol/L (3.5-5.1)
[2023-07-12 07:47] LABS: HEMATOCRIT 38.8 % (35.4-49); HEMOGLOBIN 12.8 GM/dL (11.7-16.9); MCH 28.4 pg (25.7-33.7); MCHC 33.1 g/dl (32.0-35.9); MEAN CELL VOLUME 85.9 fl (80-96); PLATELET COUNT 121 10^3/uL (134-434); RBC 4.52 M/mm3 (4.00-5.60); RDW 15.6 % (11.9-15.9); WHITE BLOOD COUNT 7.5 K/mm3 (4.0-10.0)
[2023-07-12 07:53] LABS: BLOOD UREA NITROGEN 16.2 mg/dL (7-18); CALCIUM 8.5 mg/dL (8.5-10.1); MAGNESIUM 1.9 mg/dL (1.8-2.4)
[2023-07-12 07:56] LABS: CREATININE 0.6 mg/dL (0.55-1.3); PHOSPHOROUS 3.5 mg/dL (2.5-4.9)
[2023-07-12 07:58] LABS: BILIRUBIN,TOTAL 0.8 mg/dL (0.2-1)
[2023-07-12 07:59] LABS: TOT PROT 5.7 g/dl (6.4-8.2)
[2023-07-12 08:00] LABS: ALBUMIN 3.2 g/dl (3.4-5.0)
[2023-07-12] MEDS: POTASSIUM CHLORIDE ORAL LIQUID 20 MEQ/15 ML PO ONE (08:42)
[2023-07-12] MEDS: ENOXAPARIN NA (PORCINE) 40 MG/0.4 ML DISP.SYRIN SQ SCH (09:50)
[2023-07-12] MEDS: HYDROCHLOROTHIAZIDE 25 MG TABLET (FP) PO SCH (09:50)
[2023-07-12] MEDS: amLODIPine BESYLATE 10 MG TABLET (FP) PO SCH (09:50)
[2023-07-12] MEDS ORDERED: SENNOSIDES/DOCUSATE COMBO (SENNA PLUS) TABLET (UD) PO PRN (13:06)
[2023-07-13 07:59] LABS: BASO % 1.1 % (0-2.0); HEMATOCRIT 40.6 % (35.4-49); HEMOGLOBIN 13.1 GM/dL (11.7-16.9); LYMPH % 16.8 % (8-40); MCH 27.8 pg (25.7-33.7); MCHC 32.4 g/dl (32.0-35.9); MEAN CELL VOLUME 85.7 fl (80-96); MEAN PLT VOLUME 10.5 fl (7.5-11.1); MONO % 11.8 % (3.8-10.2); NEUT % 64.3 % (42.8-82.8); PLATELET COUNT 125 10^3/uL (134-434); RBC 4.74 M/mm3 (4.00-5.60); RDW 15.3 % (11.9-15.9); WHITE BLOOD COUNT 7.1 K/mm3 (4.0-10.0)
[2023-07-13 08:15] LABS: POTASSIUM 3.2 mmol/L (3.5-5.1)
[2023-07-13 08:17] LABS: CALCIUM 8.4 mg/dL (8.5-10.1)
[2023-07-13 08:20] LABS: CREATININE 0.6 mg/dL (0.55-1.3)
[2023-07-13] MEDS: POTASSIUM CHLORIDE ORAL LIQUID 20 MEQ/15 ML PO ONE (09:49)
[2023-07-13] MEDS: POTASSIUM CHLORIDE TABS 20 MEQ TABLET.ER (FP) PO SCH (09:49)
[2023-07-13] MEDS: POTASSIUM CHLORIDE TABS 20 MEQ TABLET.ER (FP) PO ONE (15:29)
[2023-07-13] MEDS: MAGNESIUM HYDROX 2400MG/30ML ORAL SUSPENSION 30 ML CUP PO PRN (17:03)
[2023-07-14 07:56] LABS: POTASSIUM 3.5 mmol/L (3.5-5.1)
[2023-07-14 08:00] LABS: BLOOD UREA NITROGEN 16.5 mg/dL (7-18); CALCIUM 8.9 mg/dL (8.5-10.1)
[2023-07-14 08:03] LABS: CREATININE 0.7 mg/dL (0.55-1.3)
[2023-07-15 08:01] LABS: BASO % 1.2 % (0-2.0); EOS % 5.7 % (0-4.5); HEMATOCRIT 40.2 % (35.4-49); HEMOGLOBIN 13.6 GM/dL (11.7-16.9); LYMPH % 13.2 % (8-40); MCH 28.7 pg (25.7-33.7); MCHC 33.8 g/dl (32.0-35.9); MEAN CELL VOLUME 85.1 fl (80-96); MEAN PLT VOLUME 10.4 fl (7.5-11.1); MONO % 10.4 % (3.8-10.2); NEUT % 69.5 % (42.8-82.8); PLATELET COUNT 154 10^3/uL (134-434); RBC 4.73 M/mm3 (4.00-5.60); RDW 15.4 % (11.9-15.9); WHITE BLOOD COUNT 7.4 K/mm3 (4.0-10.0)
[2023-07-15 08:19] LABS: POTASSIUM 3.2 mmol/L (3.5-5.1)
[2023-07-15 08:26] LABS: BLOOD UREA NITROGEN 15.5 mg/dL (7-18); CALCIUM 8.1 mg/dL (8.5-10.1)
[2023-07-15 08:29] LABS: CREATININE 0.6 mg/dL (0.55-1.3)
[2023-07-15] MEDS: POTASSIUM CHLORIDE ORAL LIQUID 20 MEQ/15 ML PO ONE (14:39)
[2023-07-15 22:37] VITALS: RESP 18
[2023-07-15] MEDS: oxyCODONE HCL 5 MG TABLET PO PRN (23:33)
[2023-07-16 07:34] VITALS: BP 140/83; PULSE 75; TEMP 98.5
== END 2023-07-16 11:10 | disposition home or self-care (01) ==
LOC: JER 13:35 → JERBED 17:26 → OBSVTOIN 20:06 → INTOOBSV 20:06 → J7W 23:00
PROVIDERS: ADMIT Internal Medicine; ATTEND Internal Medicine
PROC: 3E033NZ Introduction of Analgesics, Hypnotics, Sedatives into Peripheral Vein, Percutaneous Approach (ICD-10-PCS; principal; 2023-07-11)
PROC: 3E03329 Introduction of Other Anti-infective into Peripheral Vein, Percutaneous Approach (ICD-10-PCS; 2023-07-11)
PROC: 3E023GC Introduction of Other Therapeutic Substance into Muscle, Percutaneous Approach (ICD-10-PCS; 2023-07-11)
PROC: 3E033NZ Introduction of Analgesics, Hypnotics, Sedatives into Peripheral Vein, Percutaneous Approach (ICD-10-PCS; 2023-07-11)
DX: L03.116 Cellulitis of left lower limb (principal); R10.31 Right lower quadrant pain; R73.03 Prediabetes; I10 Essential (primary) hypertension; J45.909 Unspecified asthma, uncomplicated; Z29.89 Encounter for other specified prophylactic measures; Z88.0 Allergy status to penicillin
CPT/HCPCS: 36415; 73590-TC-LT-FY; 73610-TC-LT-FY; 73630-TC-LT; 76775-TC; 76882-TC-RT-FY; 80048; 80053; 81003; 83036; 83735; 83880; 84100; 85025; 85027; 85610; 85730; 87086; 93005; 93010; 93971-TC; 96365; 96366; 96372; 96375; 99285-25; G0378; J0131

== ENCOUNTER 2023-09-16 04:48 | Day surgery (SDC) | payer OTHER ==
[2023-09-11 07:56] VITALS: BMI 33.5
[2023-09-16 10:33] VITALS: RESP 16
[2023-09-16 10:35] VITALS: BP 115/60; PULSE 66; TEMP 98
== END 2023-09-16 10:39 | disposition home or self-care (01) ==
LOC: JASU-ENDO 04:48
PROVIDERS: ATTEND Internal Medicine Gastroenterology
PROC: 0DJD8ZZ Inspection of Lower Intestinal Tract, Via Natural or Artificial Opening Endoscopic (ICD-10-PCS; principal; 2023-09-16 10:00)
DX: Z12.11 Encounter for screening for malignant neoplasm of colon (principal); K57.30 Diverticulosis of large intestine without perforation or abscess without bleeding; K64.8 Other hemorrhoids; Z86.010 Personal history of colon polyps